=== PATIENT | female | born 1985 | race Caucasian/White ===

== ENCOUNTER 2018-03-03 13:11 | Outpatient (CLI) | payer BC, SELFPAY ==
--- NOTE | 2018-03-03 13:11 | DI.REPORT_ITS ---
SYMPTOMS/DIAGNOSIS: POST OP ABNORMAL BLEEDING, N93.9 PELVIC ULTRASOUND: Pelvic ultrasound was performed transabdominally and transvaginally. Please see the accompanying data sheet. The patient reportedly had recent D and C for blighted ovum. There is heterogeneous material in the endometrial cavity which is apparently avascular. The findings may represent retained product of conception vs hemorrhage. Measurements of this avascular area are about 56 x 33 x 50 mm. The ovaries are unremarkable in appearance. Limited scanning of the kidneys is unremarkable. No free fluid in the cul-de-sac. CONCLUSION: Retained products of conception vs hematoma in endometrial cavity.
== END 2018-03-03 13:12 ==
PROVIDERS: PCP Family Medicine Adult Medicine; Visit Provider Obstetrics & Gynecology
DX: N93.9 Abnormal uterine and vaginal bleeding, unspecified (principal); Z98.890 Other specified postprocedural states
CPT/HCPCS: 76830; 76856

== ENCOUNTER 2018-08-10 12:41 | Outpatient (REF) | payer BC, SELFPAY ==
--- NOTE | 2018-08-10 09:50 | PAPFT_PTH ---
PATIENT: Shante Alvarado LOC: [facility] U#:[id number] AGE/SX: 33/F ROOM: RE08/10/[address]: Itzel Morrison MD : 1985 BED: DIS: 08/10/2018 SPEC #: [id number] RECD: 08/10/18 17:48 STATUS: AIYANA REKelton #: [id number] ALFREDO: 08/10/18 09:[address]: Itzel Morrison DEPT: [facility] Cytology RECD BY: Qiana Giron ENTERED: 08/10/18 17:48 SP TYPE: PAPFT OTHR DR: Tera Bowers Tissues: 1 - CX/ENDOCX FOR PAP SMEARS Procedures: PAP THIN PREP/[facility] Screening HPV DNA PROBE Comments: [id number]
== END 2018-08-10 13:01 ==
LOC: LBN 12:41
PROVIDERS: PCP Family Medicine Adult Medicine; Visit Provider Obstetrics & Gynecology
DX: Z12.4 Encounter for screening for malignant neoplasm of cervix (principal); Z11.51 Encounter for screening for human papillomavirus (HPV)
CPT/HCPCS: 88142; 87624

== ENCOUNTER 2020-09-17 20:48 | Outpatient (REF) | payer BC, SELFPAY ==
[2020-09-19 15:16] LABS: Chlamydia Result Negative (Negative); GC Result Negative (Negative)
== END 2020-09-17 20:49 | disposition home or self-care (01) ==
LOC: LBN 20:48
PROVIDERS: PCP Family Medicine Adult Medicine; Visit Provider Nurse Practitioner Women's Health
DX: Z11.3 Encounter for screening for infections with a predominantly sexual mode of transmission (principal)
CPT/HCPCS: 87491; 87591

== ENCOUNTER 2023-01-26 16:10 | Outpatient (REF) | payer BC, SELFPAY ==
--- NOTE | 2023-01-26 13:00 | PAPFT_PTH ---
PATIENT: Shante Alvarado LOC: [facility] U#:[id number] AGE/SX: 37/F ROOM: RE01/26/[address]: Phyllis Cabrera NP : 1985 BED: DIS: 01/26/2023 SPEC #: [id number] RECD: 01/27/23 12:43 STATUS: AIYANA BLACK #: [id number] ALFREDO: 01/26/23 13:[address]: Phyllis Cabrera NP DEPT: [facility] Cytology RECD BY: Qiana Giron ENTERED: 01/27/23 12:43 SP TYPE: PAPFT OTHR DR: Tera Bowers Tissues: 1 - CX/ENDOCX FOR PAP SMEARS Procedures: PAP THIN PREP/[facility] Screening HPV DNA PROBE Comments: [id number] (CHLAMYDIA/GC)
[2023-01-28 13:33] LABS: Chlamydia Result Negative (Negative); GC Result Negative (Negative)
== END 2023-01-26 16:11 | disposition home or self-care (01) ==
LOC: LBN 16:10
PROVIDERS: PCP Family Medicine Adult Medicine; Visit Provider Nurse Practitioner Women's Health
DX: Z11.51 Encounter for screening for human papillomavirus (HPV) (principal)
CPT/HCPCS: 87491; 87591; 88142; 87624

== ENCOUNTER → 2023-02-23 01:32 | Outpatient (CLI) | payer BC, SELFPAY ==
--- NOTE | 2023-02-23 07:15 | DI.MAMMO_ITS ---
Exam(s) US BREAST RT LIMITED MG MAMMO DIAGNOSTIC BI EXAM: MG MAMMO DIAGNOSTIC BI CLINICAL HISTORY: R sided breast pain,n64.4. COMPARISON: No exams were available for comparison baseline examination TECHNIQUE: Craniocaudal and mediolateral oblique Full Field Digital Mammography views of the both br easts with Computer Aided Diagnosis followed by Tomosynthesis and right breast ultrasound. FINDINGS: Mammography/Tomosynthesis: Masses/Architectural Distortion: None seen. Microcalcifications: No suspicious pleomorphic-type are seen. Skin Thickening/Nipple Retraction: None. Right breast US: Echotexture: Normal appearance of the glandular tissue. Shadowing: No suspicious foci. Cyst: None. Solid lesions: None seen. Ductal dilation: None. IMPRESSION: 1. No evidence of malignancy is noted. 2. Unless there is more urgent need, follow-up screening mammography is recommended, as per [employer] guidelines. BI-RADS Category 1 - Negative Breast Density - Category D - Extremely dense Breast density category C or D implies that the patient has dense breast tissue. Dense breast tissue is very common and is not abnormal but dense breast tissue can make it harder to find cancer on a ma mmogram. Also, dense breast tissue may increase their breast cancer risk. This information about the result of the mammogram report was provided to the patient to raise their awareness. Use this report when you speak with the patient about their risks for breast cancer, which includes their family hist ory. At that time, you may recommend for more screening tests (Ultrasound or MRI) as they might be us eful based on their risk. A negative radiographic report should not delay biopsy if a dominant or clinically suspicious mass is present. Up to ten percent of cancers are not identified on mammography. A negative report may reinforce clinical impression. Adenosis and dense breasts may obscure an underlying neoplasm. False positive reports average 6 to 10%. Patient will receive a letter notifying them of these results.
== END ==
PROVIDERS: PCP General Practice; Visit Provider Nurse Practitioner Women's Health
DX: N64.4 Mastodynia (principal); Z12.31 Encounter for screening mammogram for malignant neoplasm of breast
CPT/HCPCS: 76642; 77062; 77066; G0279